=== PATIENT | female | born 1970 | race Caucasian/White ===

== ENCOUNTER → 2022-08-04 11:26 | Outpatient (BNVA) | payer MEDICAID, SELFPAY | PROVIDERS: Visit Provider Family Medicine | DX: M25.519 Pain in unspecified shoulder (principal); M54.2 Cervicalgia | CPT/HCPCS: 73030 ==

== ENCOUNTER 2022-08-07 11:03 | Outpatient (CLI) | payer MEDICAID, SELFPAY ==
--- NOTE | 2022-08-07 11:13 | XR_ITS ---
WS: [id number] Cervical spine, 3 views, 08/07/2022 Clinical Data: M54.2 - Cervicalgia Comparison: None. Findings: No compression fractures are seen. There is disc space narrowing at C5-C6 and C6-C7 with ac companying anterior osteophytes. There is no prevertebral soft tissue swelling. The odontoid is unrem arkable. The soft tissues of the neck and the lung apices are normal. XR/XR cervical spine 3V* [id number] Impression: Degenerative disc narrowing at C5-C6 and C6-C7 with anterior osteophytes.
== END 2022-08-07 11:04 | disposition home or self-care (01) ==
LOC: RAD 11:07
PROVIDERS: PCP Family Medicine; Visit Provider Family Medicine
DX: M48.02 Spinal stenosis, cervical region (principal); M25.78 Osteophyte, vertebrae
CPT/HCPCS: 72040

== ENCOUNTER 2022-08-30 06:00 | Outpatient (RCR) | payer MEDICAID, SELFPAY | END 2022-09-26 23:59 | disposition home or self-care (01) | LOC: TPT 06:00 | PROVIDERS: PCP Family Medicine; Visit Provider Family Medicine | DX: M25.519 Pain in unspecified shoulder (principal) | CPT/HCPCS: 97110; 97162 ==

== ENCOUNTER 2022-09-27 06:00 | Outpatient (RCR) | payer MEDICAID, SELFPAY | END 2022-10-12 23:59 | disposition home or self-care (01) | LOC: TPT 06:00 | PROVIDERS: PCP Family Medicine; Visit Provider Family Medicine | DX: M25.519 Pain in unspecified shoulder (principal) | CPT/HCPCS: 97110 ==

== ENCOUNTER 2022-11-17 13:42 | Outpatient (CLI) | payer BC, SELFPAY ==
--- NOTE | 2022-11-17 13:45 | MR_ITS ---
WS: [id number] MRI CERVICAL SPINE NONCONTRAST TECHNIQUE: Sagittal T1, T2 and STIR imaging. Axial T2, gradient, and fiesta imaging. CLINICAL INFORMATION: M54.2 - Cervicalgia COMPARISON: None. FINDINGS: Straightening of the normal cervical lordosis. Cord signal is normal. No high-grade central canal corby nosis. Disc bulging worse at C3-C4 C5-C6 and C6-C7. Slight retrolisthesis C3 on C4. C2-C3: Mild facet arthropathy. Mild RIGHT and no significant LEFT foraminal narrowing. Spinal canal i s patent. C3-C4: Slight retrolisthesis. Disc osteophyte protrusion with indentation on the cervical cord. Mild central canal stenosis. Moderate LEFT greater than RIGHT bony foraminal narrowing. Moderate facet art hropathy. C4-C5: Mild disc osteophytic ridging. Moderate RIGHT greater than LEFT bony foraminal narrowing. Mode rate facet arthropathy. C5-C6: Disc osteophyte complex with mild central canal stenosis. Slight indentation LEFT ventral cerv ical cord. Moderate to severe LEFT and moderate RIGHT bony foraminal narrowing. Moderate facet arthro elyssa. C6-C7: Disc osteophyte protrusion with indentation on the cervical cord eccentric to the LEFT. Mild c entral canal stenosis. Moderate bilateral bony foraminal narrowing LEFT greater than RIGHT. Moderate facet arthropathy. C7-T1: Severe LEFT and mild RIGHT bony foraminal narrowing. Spinal canal is patent. Mild facet arthro elyssa. Visualized brain stem structures: Normal. Prevertebral soft tissues: Normal. MR/MR cervical spin wo con* [id number] IMPRESSION: 1. Straightening of the normal cervical lordosis. Mild cervical curve. 2. Slight retrolisthesis C3 on C4 with disc osteophyte protrusion. Small annul ar fissure with mild central canal stenosis. Slight contact of the cervical cor d. 3. Disc osteophyte complex eccentric to the LEFT C5-C6 and C6-C7 with mild usman tral canal stenosis. Slight indentation on the cervical cord worse at C5-C6. 4. Moderate to severe multilevel bony foraminal narrowing worse at bilateral C 5-C6 worse in the LEFT and bilateral C6-C7 worse in the LEFT, and LEFT C7-T1. 5. Moderate facet arthropathy worse at C5-C6 and C6-C7.
--- NOTE | 2022-11-17 15:15 | MR_ITS ---
WS: [id number] EXAMINATION: MR shoulder LT wo con* [id number] ORDER DATE: 11/17/2022 2:08 PM COMPARISON: None. HISTORY: M25.512 - Pain in left shoulder CONTRAST: None. TECHNIQUE: Axial T2 STAR, coronal proton density fat sat, sagittal T2 fat sat, sagittal proton densit y fat sat, axial proton density fat sat, coronal T2 fat sat, and coronal T1 performed. After contrast , axial T1 fat sat, coronal T1 fat sat, and sagittal T1 fat sat were performed. FINDINGS: Moderate degenerative arthritis at the AC joint with mild edema. Minimal narrowing of the subacromial space. Slight indentation distal supraspinatus. Normal distal supraspinatus. Normal infraspinatus. Normal teres minor. Normal subscapularis. Normal biceps tendon in the bicipital groove. Suspected sublabral foramen along the anterior superior glenoid labrum. Recommend correlation for labral tear/instability. Distal subscapularis tendon appears intact. Intra-articular biceps tendon appears intact. Biceps labr al anchor appears intact. MR/MR shoulder LT wo con* [id number] IMPRESSION: 1. Moderate degenerative arthritis AC joint with mild edema and slight downslo ping of the acromion. 2. Rotator cuff is normal in appearance. 3. Biceps tendon intact within the bicipital groove. 4. Intra-articular biceps tendon and biceps labral anchor appear intact. 5. Irregularity along the anterior superior labrum appears to represent benign sublabral foramen. This can be further evaluated with arthrogram if concern fo r labral pathology.
== END 2022-11-17 13:43 | disposition home or self-care (01) ==
LOC: RAD 13:47
PROVIDERS: PCP Family Medicine; Visit Provider Family Medicine
DX: M19.012 Primary osteoarthritis, left shoulder; M25.78 Osteophyte, vertebrae; M47.812 Spondylosis without myelopathy or radiculopathy, cervical region; M48.02 Spinal stenosis, cervical region
CPT/HCPCS: 72141; 73221